=== PATIENT | female | born 1960 | race African-American/Black ===

== ENCOUNTER → 2016-07-29 | Outpatient (CLI) | payer BC ==
[~2016-07-29] MED LIST: BENAZEPRIL HCL5 M2 PO; LORTAB 5/500 TA1 TA1 PO; MOTRIN600 MG PO; PREDNISONE PO
--- NOTE | ~2016-07-29 | US128 ---
[id number] [facility]. [facility] [address]. [place], [place] [address] [id number] O MR#: [id number] Acc #: [id number] NAME: LEEANNA SHAH : 1960 SEX: F STUDY DATE/TIME: 07/29/2016 15:13 UNIT: [facility]US ROOM: STUDY DESCRIPTION: US Thyroid Attending Physician: Tammie Shah M.D. Referring Physician: Tammie Shah M.D. Ordering Physician: Physician Non-Staff Primary Care Physician: Tammie Shah M.D. MEDICAL IMAGING REPORT This report is preliminary unless electronic signature is present EXAM Thyroid ultrasound. DATE 07/29/2016 CLINICAL HISTORY Followup thyroid nodules. COMPARISON 10/15/2015 FINDINGS There is an essentially purely cystic right thyroid lesion measuring 2.8 x 1.7 x 3.0 cm in size. This is unchanged since the ultrasound of 10/15/2015. 1 or 2 additional cystic lesions are seen on the right, under a centimeter in size and of doubtful significance. On the left, in addition to a few benign appearing tiny cysts, there is a 7 x 6 x 7 mm cyst, also unchanged since the prior study. INDICATION No suspicious solid lesion on either side. Benign-appearing cystic lesions are stable bilaterally. Dictated by... Stevie Aquino M.D. THIS IS AN ELECTRONICALLY VERIFIED REPORT Stevie Aquino M.D. at 08/04/2016 10:37 AM ANAIS/ewa TD: 07/31/2016 11:22 JOB #: [id number] MEDICAL IMAGING REPORT Page 1 of 1 COPY
== END | disposition home or self-care (01) ==
LOC: CGUS 14:39
DX: E04.2 Nontoxic multinodular goiter (principal)
CPT/HCPCS: 76536